=== PATIENT | male | born 1990 | race African-American/Black ===

== ENCOUNTER 2024-09-24 16:20 | Emergency (ER) | payer OTHER, SELFPAY ==
[2024-09-24 16:33] VITALS: BP 141/98
[2024-09-24 16:36] VITALS: BMI 31.1
[2024-09-24 17:00] VITALS: BP 112/97
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
== END 2024-09-24 18:12 ==
LOC: EMR 16:20
PROVIDERS: EMERGENCY PHYSICIAN Emergency Medicine
DX: S09.90XA Unspecified injury of head, initial encounter (principal); S01.511A Laceration without foreign body of lip, initial encounter; Y04.0XXA Assault by unarmed brawl or fight, initial encounter
CPT/HCPCS: 99283; 12013